=== PATIENT | male | born 1975 | race Native Hawaiian/Other Pacific Islander ===

== ENCOUNTER 2016-09-08 14:03 | Emergency (ER) | payer BC ==
[2016-09-08 14:17] VITALS: BP 136/82; PULSE 78; RESP 18; TEMP 97; O2SAT 100
--- NOTE | 2016-09-08 14:38 | ED PDOC ---
HPI: Abdomen Time Seen by Provider: 09/08/16 14:36 Chief Complaint (Nursing): Abdominal Pain Chief Complaint (Provider): ABDOMINAL PAIN History Per: Patient (41 Y/O MALE HERE WITH ABDOMINAL DISCOMFORT INTERMITTENTLY ASSOCIATED WITH ABDOMINAL DISTENSION. HAS TAKEN HERBAL MEDICATIONS FOR CONSTIPATION AND GAS WITHOUT RELIEF. TOOK GAS EX WITHOUT RELIEF. DENIES ANY VOMITING/FEVER. STATES HE HAS BEEN EATING BOILED FOODS WITHOUT OIL IN ATTEMPT TO IMPROVE SYMPTOMS. HAS HAD H/O APPENDECTOMY 1 YEAR AGO AND IS CONCERNED IF SYMPTOMS ARE RELATED. PATIENT HAS HAD BM TODAY PRIOR TO ED ARRIVAL.) Past Medical History Reviewed: Historical Data, Nursing Documentation, Vital Signs Vital Signs: Last Vital Signs Temp 97 F L 09/08/16 14:10 Pulse 78 09/08/16 14:10 Resp 18 09/08/16 14:10 BP 136/82 09/08/16 14:10 Pulse Ox 100 09/08/16 14:38 - Medical History PMH: Hypothyroidism Denies: HIV, Chronic Kidney Disease - Family History Family History: States: Unknown Family Hx - Home Medications Home Medications: Ambulatory Orders Medication Instructions Recorded Docusate [Colace] 100 mg PO BID #60 cap 08/22/15 Levothyroxine [Synthroid] 25 mcg PO DAILY #0 tab 08/22/15 Oxycodone HCl/Acetaminophen 1 tab PO Q6 PRN #20 tab 08/22/15 [Percocet 5-325 mg Tablet] Docusate Sodium [Colace] 100 mg PO BID #20 capsule 09/08/16 Phosphate Enema [Fleet Enema 135 135 ml RC ONCE PRN #1 nma 09/08/16 Ml] Ranitidine HCl [Zantac 75] 75 mg PO BID #10 tablet 09/08/16 - Allergies Allergies/Adverse Reactions: Allergies Allergy/AdvReac Type Severity Reaction Status Date / Time No Known Allergies Allergy Verified 08/21/15 22:04 Review of Systems ROS Statement: Except As Marked, All Systems Reviewed And Found Negative Physical Exam - Reviewed Nursing Documentation Reviewed: Yes Vital Signs Reviewed: Yes - Physical Exam Appears: Positive for: Well, Non-toxic, No Acute Distress Head Exam: Positive for: ATRAUMATIC, NORMAL INSPECTION, NORMOCEPHALIC Skin: Positive for: Normal Color, Warm, DRY Eye Exam: Positive for: EOMI, Normal appearance, PERRL ENT: Positive for: Normal ENT Inspection Neck: Positive for: Normal, Painless ROM Cardiovascular/Chest: Positive for: Regular Rate, Rhythm Respiratory: Positive for: CNT, Normal Breath Sounds Gastrointestinal/Abdominal: Positive for: Normal Exam, Bowel Sounds, Soft Back: Positive for: Normal Inspection Extremity: Positive for: Normal ROM Neurologic/Psych: Positive for: Alert, Oriented - Laboratory Results Result Diagrams: 09/08/16 15:26 09/08/16 15:26 - ECG O2 Sat by Pulse Oximetry: 100 - Progress ED Course And Treament: EKG: NSR NO ACUTE CHANGES NO ECTOPY 66BPM INCOMPLETE RBBB ABDOMINAL XRY: MODERATE STOOL NOTED; NONSPECIFIC AIR BOWEL PATTERN REGLAN 10IV PEPCID 20 MG IV WITH IMPROVEMENT OF SYMPTOMS Disposition - Clinical Impression Clinical Impression: Abdominal discomfort - Patient ED Disposition Is Patient to be Admitted: No - Disposition Referrals: Devin Ford MD [Staff Provider] - Disposition: Routine/Home Disposition Time: 16:32 Condition: FAIR Prescriptions: Docusate Sodium [Colace] 100 mg PO BID #20 capsule Phosphate Enema [Fleet Enema 135 Ml] 135 ml RC ONCE PRN #1 nma PRN Reason: Constipation Ranitidine HCl [Zantac 75] 75 mg PO BID #10 tablet Instructions: High Fiber Diet (ED), Constipation (GEN), Diet for Ulcers and Gastritis (GEN) - POA Present On Arrival: Cath Associated UTI
--- NOTE | 2016-09-08 15:14 | RAD ---
PROCEDURE: Radiographs of the chest and abdomen (obstructive series) HISTORY: ABDOMINAL PAIN COMPARISON: No prior. TECHNIQUE: AP radiograph of the chest, with upright and supine radiographs of the abdomen. FINDINGS: CHEST: Lungs: Clear. Cardiovascular: Normal size heart. No pulmonary vascular congestion. Pleura: No pleural fluid. No pneumothorax. Other findings: None. ABDOMEN AND PELVIS: Bowel: Unremarkable bowel gas pattern. No evidence of mechanical obstruction. Free air: Unable to adequately evaluate for free air as the upright film does not include the diaphragm. No gross evidence, however. Bones: Unremarkable. Other findings: None. IMPRESSION: Unremarkable radiographs of chest and abdomen. No evidence of mechanical bowel obstruction.
[2016-09-08 15:38] LABS: URINE BILIRUBIN NEGATIVE (NEGATIVE); URINE BLOOD MODERATE (NEGATIVE); URINE CLARITY CLEAR (Clear); URINE COLOR YELLOW (YELLOW); URINE GLUCOSE (UA) NEG (Normal); URINE LEUKOCYTE ESTERASE NEG Leu/uL (Negative); URINE NITRATE NEGATIVE (NEGATIVE); URINE PROTEIN NEGATIVE (NEGATIVE); URINE UROBILINOGEN 0.2-1.0 mg/dL (0.2-1.0)
[2016-09-08 15:41] LABS: BASO # 0.1 K/uL (0.0-0.2); BASO % 0.5 % (0.0-2.0); EOS # 0.3 K/uL (0.0-0.7); EOS % 3.3 % (0.0-4.0); HEMOGLOBIN 14.2 g/dL (12.0-18.0); LYMPH # 3.4 K/uL (1.0-4.3); LYMPH % 33.3 % (20.0-40.0); MEAN CORPUSCULAR HGB CONC 33.8 g/dL (33.0-37.0); MEAN PLATELET VOLUME 7.5 fl (7.2-11.7); MONO # 0.7 K/uL (0.0-0.8); MONO % 6.6 % (0.0-10.0); NEUT # 5.7 K/uL (1.8-7.0); NEUT % 56.3 % (50.0-75.0); NRBC % 0.1 % (0.0-0.0); RBC 5.06 Mil/uL (4.40-5.90); RED CELL DISTRIBUTION WIDTH 13.6 % (11.5-14.5); WHITE BLOOD COUNT 10.2 K/uL (4.8-10.8)
[2016-09-08 15:47] LABS: ALBUMIN 4.3 g/dL (3.5-5.0)
[2016-09-08 15:50] LABS: ALB/GLOB RATIO 1.2 (1.0-2.1); ALT/SGPT 67 U/L (21-72); AST/SGOT 46 U/L (17-59); BLOOD UREA NITROGEN 10 mg/dl (9-20); GFR AFRICAN-AMERICAN > 60; GFR NON-AFRICAN AMERICAN > 60
[2016-09-08 15:51] LABS: CALCIUM 9.8 mg/dL (8.4-10.2); LIPASE 151 U/L (23-300)
--- NOTE | 2016-09-09 13:45 | CARD ---
APPROVED REPORT EKG Measurement Heart [id number] <Conclusion> Normal sinus rhythm Incomplete right bundle branch block Borderline ECG
== END 2016-09-08 16:51 | disposition home or self-care (01) ==
LOC: H.ER 14:03
DX: K59.00 Constipation, unspecified (principal)
CPT/HCPCS: 74022; 80053; 81003; 83690; 84484; 85025; 87086; 93005; 96374; 96375; 99283; J2765